=== PATIENT | female | born 1955 | race Caucasian/White ===

== ENCOUNTER 2016-05-30 17:29 | Inpatient (IN) | payer OTHER ==
[2016-05-30] MEDS ORDERED: NS 1,000 ML IV ONE (18:48)
--- NOTE | 2016-05-30 18:57 | EDPHY ---
H & P Stated Complaint: Right ankle pain/swelling, atraumatic. Source: Patient Exam Limitations: No limitations - Personal History Current Tetanus/Diphtheria Vaccine: Yes Current Tetanus Diphtheria and Acellular Pertussis (TDAP): Yes - Medical/Surgical History Hx Asthma: Yes Hx Chronic Respiratory Disease: No Hx Diabetes: No Hx Cardiac Disease: Yes Hx Renal Disease: No Hx Cirrhosis: No Hx Alcoholism: No Hx HIV/AIDS: No Hx Splenectomy or Spleen Trauma: No Other PMH: PMH: Heart Attack, Diverticulosis, Asthma, - Family History Significant Family History: No pertinent family hx - Social History Smoking Status: Never smoked Alcohol Use: None Drug Use: None Time Seen by Provider: 05/30/16 18:51 HPI/ROS: HPI: 61-year-old female presents to emergency department with chief concern right ankle pain and swelling, redness and warmth. Reports onset of ankle soreness without trauma 3 days ago. Symptoms progressed from soreness to moderately swollen and quite painful today. Difficulty ambulating due to pain. Recovered from a URI last week. Those symptoms have entirely resolved. Denies fever, chills, myalgias, current URI symptoms, shortness of breath, chest pain, abdominal pain, nausea, vomiting, diarrhea, rash. No recent conjunctivitis or urinary infections. No recent GI infections. No recent travel. No history of arthritis or gout. ROS:10 point review of systems is negative other than as stated in HPI (Cherelle Barnhart) - Social History Additional Social History: (Cherelle Barnhart) - Physical Exam Exam: Temp 37.9, heart rate 72, respiratory rate 18, blood pressure 129/63, 96% on room air General: Awake, alert, calm, cooperative. No acute distress. Head: Normalocephalic. Atraumatic. EENT: PERRLA. EOMI. No pallor or injection. Anicteric. No nystagmus. No injection. TMs intact bilaterally with normal landmarks. No rhinnorhea, nasal passages clear. Oropharynx without redness, exudates, or lesions. Tonsils 2+ bilaterally, no exudates. Neck: Supple, nontender. No lymphadenopathy. Full range of motion. No meningismus. Respiratory: Breathing unlabored. Breath sounds equal bilaterally and clear to auscultation. No adventitious sounds. CV: Chest nontender, atraumatic. Heart rate regular. No murmur, distal pulses 2+ bilaterally. Brisk cap refill all extremities. GI: Abdomen soft, nontender. Bowel sounds normoactive and positive x4 quadrants. : No suprapubic tenderness. No CVA or flank tenderness. Neuro: Alert. Oriented x 3. Speech clear. Nonfocal cranial nerves throughout. Sensation intact all extremities. Skin: Skin warm, dry, intact. No rashes, abrasions, or lacerations. Right lateral ankle mildly erythematous and warm. Skin turgor normal. Extremities: Full range of motion in all 4 extremities. Strength 5+ all extremities. Negative calf pain or swelling bilaterally. Negative Homans sign bilaterally. Right ankle moderately edematous and with light erythema laterally with warmth. Decreased range of motion. Tenderness pronounced laterally. (Cherelle Barnhart) Constitutional: Initial Vital Signs Temperature (C) 37.9 C 05/30/16 17:38 Heart Rate 72 05/30/16 17:38 Respiratory Rate 18 05/30/16 17:38 Blood Pressure 129/63 H 05/30/16 17:38 O2 Sat (%) 96 05/30/16 17:38 O2 Delivery Mode Room Air Allergies/Adverse Reactions: shellfish derived Allergy (Verified 05/30/16 17:43) Home Medications: Medication Instructions Recorded Atorvastatin Calcium [Lipitor 20 20 mg PO DAILY 05/30/16 mg (*)] Carvedilol [Coreg] 18.75 mg PO BID 05/30/16 Clopidogrel Bisulfate [Plavix (*)] 75 mg PO DAILY 05/30/16 Ramipril [Altace 2.5mg (*)] 2.5 mg PO HS 05/30/16 Medical Decision Making - Diagnostics Imaging: Right Ankle Series, 3 Views History: Ankle pain and swelling; infection is suspected. No prior studies are available for comparison. Findings: A fracture or other acute osseous abnormality is not identified. The bone alignment is normal. The ankle mortise has a normal contour. Soft tissue swelling is identified. Soft tissue calcifications are noted at the level of the talonavicular articulation anteriorly. Impression: 1. Negative for fracture or osseous erosive change. 2. Soft tissue swelling is identified with no radiopaque foreign body identified. Dictated By: Dre Rollins MD (Cherelle Barnhart) ED Course/Re-evaluation: 1849:61-year-old female presents to emergency department with right ankle pain, swelling, warmth in a temp of 100.0. Symptoms onset 3 days ago. Only recent infection is a URI infection last week. No other joint pain or swelling. IV started. Labs and blood cultures drawn. X-ray pending. Patient declines any pain medication as she has no pain at rest. She has no nausea or vomiting. She is nontoxic. 1899: White count 9050. Metabolic panel unremarkable. CRP 16.7. Synovial fluid aspirated by my colleague Dr. Thanh Sanderson shows 48,969 WBCs, [address] Jarred Payan of orthopedics consulted. Patient will be taken to OR. 2129: Vitals remain stable. Patient transferred to outpatient surgery with Dr. longo. (Cherelle Barnhart) PHYSICIAN DOCUMENTATION: The patient was evaluated and managed by the nurse practitioner and myself. I have reviewed the chart and agree with the findings and plan of care as documented. In addition, I examined the patient myself at 1849. History confirmed as nontraumatic right ankle pain for 3 days. Physical findings as follows: Tender warm to the touch and swollen right ankle. Procedure: Joint aspiration Indication: Hot swollen ankle, evaluate for septic joint. Risk benefit and alternatives discussed including possibility of infection or bleeding, and patient consented for procedure. Standard sterile technique was used and 18 gauge needle was used to aspirate the right ankle joint after 1% lidocaine anesthesia. 3 mL of turbid yellow fluid was obtained and sent for cell count, culture, and crystals. Patient tolerated procedure well. Discussed with Ora haley at 1949. Recommended no antibiotics, probable washout in OR tonight. He will come see the patient personally. 1949: Discussed with patient. NPO now, popcorn at [id number]. 2023: Discussed with Dr. Payan who is in the hospital evaluating the patient. Requests hospitalist admission for IV antibiotics. Kendall will admit 2139. Did not have SIRS criteria in ED. I am the secondary supervising physician. (Thanh Sanderson) Differential Diagnosis: Differential diagnosis includes but is not limited to and in no particular order septic joint, reactive arthritis, cellulitis, musculoskeletal trauma, gout , DVT (Cherelle Barnhart) - Data Points Laboratory Results: Laboratory Results 05/30/16 19:00 05/30/16 19:00 05/30/16 19:00 WBC 9.05 10^3/uL (3.80-9.50) RBC 4.12 L 10^6/uL (4.18-5.33) Hgb 12.5 L g/dL (12.6-16.3) Hct 37.8 L % (38.0-47.0) MCV 91.7 fL (81.5-99.8) MCH 30.3 pg (27.9-34.1) MCHC 33.1 g/dL (32.4-36.7) RDW 12.2 % (11.5-15.2) Plt Count 274 10^3/uL (150-400) MPV 9.4 fL (8.7-11.7) Neut % (Auto) 69.9 % (39.3-74.2) Lymph % (Auto) 16.9 % (15.0-45.0) [place] % (Auto) 10.5 % (4.5-13.0) Eos % (Auto) 1.7 % (0.6-7.6) Baso % (Auto) 0.4 % (0.3-1.7) Nucleat RBC Rel Count 0.0 % (0.0-0.2) Absolute Neuts (auto) 6.33 10^3/uL (1.70-6.50) Absolute Lymphs (auto) 1.53 10^3/uL (1.00-3.00) Absolute Monos (auto) 0.95 H 10^3/uL (0.30-0.80) Absolute Eos (auto) 0.15 10^3/uL (0.03-0.40) Absolute Basos (auto) 0.04 10^3/uL (0.02-0.10) Absolute Nucleated RBC 0.00 10^3/uL (0-0.01) Immature Gran % 0.6 % (0.0-1.1) Immature Gran # 0.05 10^3/uL (0.00-0.10) ESR 24 MM/HR (0-30) Sodium 140 mEq/L (134-144) Potassium 4.3 mEq/L (3.5-5.2) Chloride 102 mEq/L (97-110) Carbon Dioxide 29 mEq/l (22-31) Anion Gap 9 mEq/L (8-16) BUN 10 mg/dL (7-23) Creatinine 0.6 mg/dL (0.6-1.0) Estimated GFR > 60 Glucose 86 mg/dL (70-100) Calcium 9.0 mg/dL (8.5-10.4) C-Reactive Protein 16.7 H mg/L (<10.0) Synovial Source SYNOVIAL Synovial Color PINK H (CLS/PALE YL) Synovial Appearance CLOUDY H (CLEAR) Synovial WBC 33454 H /mm3 (0-150) Synovial RBC 00046 H /mm3 (0-0) Synovial Neutrophils 100 H % (0-25) Synovial Crystals Pending Medications Given: Discontinued Medications Hydromorphone HCl (Dilaudid) 0.5 mg IVP EDNOW ONE Stop: 05/30/16 21:16 Last Admin: 05/30/16 21:28 Dose: 0.5 mg Sodium Chloride (Ns) 1,000 mls @ 0 mls/hr IV ONCE ONE PRN Reason: Wide Open Stop: 05/30/16 18:49 Last Admin: 05/30/16 19:10 Dose: 1,000 mls Departure - Departure Disposition: To OP Cath/Surgery Clinical Impression: Septic arthritis of ankle Condition: Good
[2016-05-30 19:11] LABS: % IMMATURE GRANULYOCYTES 0.6 % (0.0-1.1); ABSOLUTE IMMATURE GRANULOCYTES 0.05 10^3/uL (0.00-0.10); ADD DIFF? NO; ADD MORPH? NO; ADD SCAN? NO; ATYPICAL LYMPHOCYTE FLAG 30 (0-99); FRAGMENT RBC FLAG 0 (0-99); HEMATOCRIT 37.8 % (38.0-47.0); HEMOGLOBIN 12.5 g/dL (12.6-16.3); LEFT SHIFT FLG 10 (0-99); LIPEMIA HEMOLYSIS FLAG 80 (0-99); MEAN CELL HEMOGLOBIN 30.3 pg (27.9-34.1); MEAN CELL HEMOGLOBIN CONCENTR. 33.1 g/dL (32.4-36.7); MEAN CELL VOLUME 91.7 fL (81.5-99.8); MEAN PLATELET VOLUME 9.4 fL (8.7-11.7); PLATELET CLUMPS FLAG 0 (0-99); PLATELET COUNT 274 10^3/uL (150-400); RED BLOOD CELL COUNT 4.12 10^6/uL (4.18-5.33); RED CELL DISTRIBUTION WIDTH 12.2 % (11.5-15.2)
[2016-05-30 19:25] LABS: SEDIMENTATION RATE 24 MM/HR (0-30)
[2016-05-30 19:37] LABS: ANION GAP 9 mEq/L (8-16); C-REACTIVE PROTEIN 16.7 mg/L (<10.0); CARBON DIOXIDE 29 mEq/l (22-31); CHLORIDE 102 mEq/L (97-110); CREATININE 0.6 mg/dL (0.6-1.0); GLOMERULAR FILTRATION RATE > 60; GLUCOSE 86 mg/dL (70-100); POTASSIUM 4.3 mEq/L (3.5-5.2); SODIUM 140 mEq/L (134-144)
[2016-05-30 19:41] LABS: WBC, SYNOVIAL FLUID 48969 /mm3 (0-150)
--- NOTE | 2016-05-30 20:16 | DX ---
Right Ankle Series, 3 Views History: Ankle pain and swelling; infection is suspected. No prior studies are available for comparis on. Findings: A fracture or other acute osseous abnormality is not identified. The bone alignment is norm al. The ankle mortise has a normal contour. Soft tissue swelling is identified. Soft tissue calcifica tions are noted at the level of the talonavicular articulation anteriorly. Impression: 1. Negative for fracture or osseous erosive change. 2. Soft tissue swelling is identified with no radiopaque foreign body identified.
[2016-05-30] MEDS ORDERED: HYDROmorphONE/DILAUDID 1 MG/ML SYR IVP ONE (21:15)
[2016-05-30] MEDS ORDERED: POLYMYXIN B SULFATE 500,000 UNIT/10 ML SYR IRR ONE (21:23)
[2016-05-30] MEDS ORDERED: BUPIVACAINE 0.5% 30 ML SDV ONE (21:23)
[2016-05-30] MEDS ORDERED: BACITRACIN 50,000 UNITS/10 ML SYR IRR ONE (21:23)
--- NOTE | 2016-05-30 22:03 | PDCONSULT ---
[facility] Note: HPI: 61y F h/o diverticulitis p/w R ankle swelling, redness, pain starting 3d ago. No trauma or wounds prior to this episode. Insidious onset. Preceded by only a cold x 1.5wk. Distant history of fracture of R ankle treated nonop. H/ o prior diverticulosis-related infections, but nothing recently due to diet modifications. PMHx: CAD, HTN, Diverticulosis PSHx: unremarkable SocHx: Nonsmoker. 1drink/day. Retired from 40yrs of [employer] ROS: HEENT wnl. CV wnl. Pulm - prior asthma resolved. GI- no recent diverticulosis events. no burning/discomfort. Skin no rashes. MSK per above. Neuro wnl. ED aspiration: ~49k nucleated cells, 100% neutrophils. Cloudy aspirate. Crystals pending Temp: 37.9 PE: Atraumatic head. corrective lenses. hearing intact. unlabored breathing. BUE: moving well. LLE: varicose veins. cavus deformity. 5/5 FHL/EHL/TA/GS, SILT RLE: + edema and erythema. increased warmth. 2+ DP/PT pulses. AROM ankle dorsiflexion and plantarflexion, limited by some pain, but >20 degrees of motion A/P 61y F h/o recent respiratory infection and prior diverticulosis infections p/w likely R septic ankle - plan for OR to perform open vs. arthroscopic ankle I&D - while crystal arthropathy remains on differential, possibility of superinfection would remain regardless and presence of fever and aspirate results raise likelihood and suspicion for infective process - We discussed the risks and benefits of surgery, including recurrent infection , neurovascular injury, damage to joint, possibility that no cx are positive - Recommend admission to hospitalist service for IV abx (consider Infectious disease consult to determine appropriate IV abx regimen after cx results and to follow patient's infection course) - NPO until OR - pain control - hold abx until after cx/specimen taken from ankle in OR. -Jarred Payan
[2016-05-30] MEDS ORDERED: fentaNYL 100 MCG/2 ML INJ ONE ×2 (22:24→23:06)
[2016-05-30] MEDS ORDERED: PROPOFOL 200 MG/20 ML VIAL ONE (22:25)
[2016-05-30] MEDS ORDERED: LIDOCAINE 2% 5 ML SDV ONE (22:26)
[2016-05-30] MEDS ORDERED: MIDAZOLAM 2 MG/2 ML VIAL ONE (22:28)
[2016-05-30] MEDS ORDERED: ONDANSETRON 4 MG/2 ML VIAL ONE (23:39)
[2016-05-30] MEDS ORDERED: DEXAMETHASONE 4 MG/ML VIAL ONE (23:39)
[2016-05-30] MEDS ORDERED: KETOROLAC 30 MG/1 ML SDV ONE (23:40)
--- NOTE | 2016-05-31 00:20 | POSTOPPROG ---
Post Op Note Date of Operation: 05/31/16 Surgeon: Jarred Payan Legal Intern: n/a Anesthesia: LMA Pre-op Diagnosis: Right septic ankle Post-op Diagnosis: Same Indication: Right Septic ankle Procedure: Irrigation and debridement of Right Ankle, Synovectomy Findings: synovitis, clot, and purulence from Right ankle Inf/Abcess present in the surg proc area at time of surgery?: Yes EBL: 50-100 Specimen(s): Cultures sent
[2016-05-31] MEDS ORDERED: fentaNYL 100 MCG/2 ML INJ ONE (00:24)
--- NOTE | 2016-05-31 00:35 | SUROPNOTE ---
[facility] Operative Report - Surgery Operative Report: Orthopaedic Surgery Preop Dx: Right ankle septic joint Postop Dx: Same Procedure: Right Ankle I&D and synovectomy Anesthesia: General (LMA) Indication: 61y F h/o diverticulitis and recent 1.5wk cough/cold p/w Right ankle pain swelling, & erythema suspicious for Right septic ankle. ED aspirate included 69625 nucleated cells, 100% neutrophils. Concern was for septic ankle. Pt took today's plavix but not ASA Procedure Report: Consent obtained in ED with partner. Pt taken to OR where Right leg prepped and draped in typical fashion. Timeout performed, confirming patient, surgery, and site. An esmarch was applied to the calf as a tourniquet without exsanguination anteromedial ankle portal established (skin only incision, then blunt dissection to joint). Cloudy blood issued from the wound. 2.7mm scope introduced into ankle. Synovitis seen throughout anterior joint. Talus cartilage intact except for several longitudinal ridges centrally lined up with a prominent anterior osteophyte. Lateral portal established (sharp skin, blunt dissection to joint). the 4.0 scope was found to have a better fitting trocar, so that was used for visualization. Shaver introduced and synovitis resected. A portion of the synovium and debris was removed with a grasper and sent for specimen. Antibiotics were then administered. The anterior osteophyte was removed with a small osteotome and continued shaving was done to remove all inflamed-appearing tissue. Once we had run 9L of normal saline through the joint, the instruments were removed and the portals sutured closed. The tourniquet was taken down, and some bleeding was noted from the anterolateral portal. That suture was removed and the incision expanded to explore the area and ensure no larger vessels were bleeding. Seeing none, and with the bleeding slowing down to nothing (ooze appearing to be from the synovectomy and not based on a vessel) the anterolateral portal was closed in layers with 2-O vicryl subcutaneous and 3-O nylon for the skin. No more ooze noted. A sterile dressing was applied and then a short leg splint placed on the operative leg. I was present for the entirety of the case Counts were correct at the conclusion of the case Complications: none EBL: 50 Drains: None Dispo: Stable
[2016-05-31] MEDS ORDERED: HYDROmorphONE/DILAUDID 1 MG/ML SYR IVP PRN (00:49)
[2016-05-31] MEDS ORDERED: ONDANSETRON DISINTEGRATING 4 MG TAB PO PRN (01:17)
[2016-05-31] MEDS ORDERED: ONDANSETRON 4 MG/2 ML VIAL IVP PRN (01:17)
[2016-05-31] MEDS: HYDROCODONE/APAP 5/325 TAB PO PRN ×4 (01:50→14:31)
[2016-05-31] MEDS: VANCOMYCIN HCL/NORMAL SALINE 250 ML IV SCH ×2 (02:00→12:52)
--- NOTE | 2016-05-31 02:10 | PDGENHP ---
History and Physical - Chief Complaint R ankle pain - History of Present Illness patient is a 61-year-old female with history of CAD ([place] s/p PCI), mild intermittent asthma and diverticulosis who presents to the ED with 3 days of right ankle pain. Patient states symptoms started about 3 days ago, when she awoke from sleep with some tenderness in her ankle, she denies any obvious trauma to the area or skin breakdown. Over the following days pain intensified and ankle became swollen, although not significantly erythematous or warm. Day of presentation patient was having difficulty walking on her leg so she decided to come to the ED for further evaluation. She has never experienced any joint pain like this before, does not have a history of gout or pseudogout. In addition to the pain, today she noted subjective fevers. Of note patient states for the about 1 week ago she had developed upper respiratory symptoms, fever, chills and cough. The symptoms were present for about 5 days, and had been improving over the last 2-3 days prior to her ankle pain. On arrival to the ED patient had a low-grade temperature (100.2F), but otherwise hemodynamically stable. Labs were largely within normal limits except for mildly elevated CRP. Physical exam and x-ray of the right ankle revealed significant soft tissue swelling but no obvious fracture. Joint was then aspirated by the ED physician, and initial cell count revealed approximately 50,000 WBCs, 100% neut. Given these findings, there was concern for septic joint and Orthopedics was consulted. patient was then brought to the OR for joint washout and joint fluid culture. Patient was then admitted to the hospital service for further management. History Information - Allergies/Home Medication List Allergies/Adverse Reactions: shellfish derived Allergy (Verified 05/30/16 17:43) Home Medications: Atorvastatin Calcium [Lipitor 20 mg (*)] 20 mg PO DAILY 05/30/16 [Last Taken 01/05] Carvedilol [Coreg] 18.75 mg PO BID 05/30/16 [Last Taken 05/30/16 08:00] Clopidogrel Bisulfate [Plavix (*)] 75 mg PO DAILY 05/30/16 [Last Taken 05/30/16] Ramipril [Altace 2.5mg (*)] 2.5 mg PO HS 05/30/16 [Last Taken 05/29/16] I have personally reviewed and updated: family history, medical history, social history, surgical history - Past Medical History Additional medical history: CAD: [place] at age 51, PCI x 3 at that time, on aspirin/ plavix lifelong. Mild intermittent asmtha. Diverticulosis - Surgical History Additional surgical history: right knee and right shoulder arthroscopy - Family History Additional family history: F: early CAD, [place] in 40s - Social History Smoking Status: Never smoked Alcohol Use: None Drug Use: None Additional social history: Patient lives with her and daughter. Retired , previously worked as a nanny. Review of Systems ROS: 10pt was reviewed & negative except for what was stated in HPI & below Physical Exam Temp Pulse Resp BP Pulse Ox 37.5 C 59 L 14 116/66 95 05/31/16 00:18 05/31/16 01:53 05/31/16 01:53 05/31/16 01:53 05/31/16 01:53 O2 (L/minute) 2 Constitutional: no apparent distress, appears nourished, not in pain Eyes: PERRL, anicteric sclera, EOMI Ears, Nose, Mouth, Throat: moist mucous membranes, hearing normal, ears appear normal, no oral mucosal ulcers Cardiovascular: regular rate and rhythym, no murmur, rub, or gallop, pulses symmetric bilaterally, edema (R ankle edema), No JVD Peripheral Pulses: 2+: dorsalis-pedis (R), dorsalis-pedis (L) Respiratory: no respiratory distress, no rales or rhonchi, clear to auscultation Gastrointestinal: normoactive bowel sounds, soft, non-tender abdomen, no palpable masses, No guarding, No rebound, No distension Genitourinary: no bladder fullness, no bladder tenderness Skin: warm, normal color, no rashes or abrasions Musculoskeletal: other (R ankle/lower leg wrapped in post-surgical dressing, distal foot visualized, edematous, nonerythematous) Neurologic: AAOx3, sensation intact bilaterally, CN II-XII Intact, No weakness, No numbness, No facial droop Psychiatric: interacting appropriately, not anxious, not encephalopathic, thought process linear Lab Data & Imaging Review 05/30/16 19:00 05/30/16 19:00 WBC 9.05 10^3/uL (3.80-9.50) 05/30/16 19:00 RBC 4.12 10^6/uL (4.18-5.33) L 05/30/16 19:00 Hgb 12.5 g/dL (12.6-16.3) L 05/30/16 19:00 Hct 37.8 % (38.0-47.0) L 05/30/16 19:00 MCV 91.7 fL (81.5-99.8) 05/30/16 19:00 MCH 30.3 pg (27.9-34.1) 05/30/16 19:00 MCHC 33.1 g/dL (32.4-36.7) 05/30/16 19:00 RDW 12.2 % (11.5-15.2) 05/30/16:00 Plt Count 274 10^3/uL (150-400) 05/30/16 19:00 MPV 9.4 fL (8.7-11.7) 05/30/16 19:00 Neut % (Auto) 69.9 % (39.3-74.2) 05/30/16 19:00 Lymph % (Auto) 16.9 % (15.0-45.0) 05/30/16 19:00 [place] % (Auto) 10.5 % (4.5-13.0) 05/30/16 19:00 Eos % (Auto) 1.7 % (0.6-7.6) 05/30/16 19:00 Baso % (Auto) 0.4 % (0.3-1.7) 05/30/16 19: Nucleat RBC Rel Count 0.0 % (0.0-0.2) 05/30/16 19:00 Absolute Neuts (auto) 6.33 10^3/uL (1.70-6.50) 05/30/16 19:00 Absolute Lymphs (auto) 1.53 10^3/uL (1.00-3.00) 05/30/16 19:00 Absolute Monos (auto) 0.95 10^3/uL (0.30-0.80) H 05/30/16 19:00 Absolute Eos (auto) 0.15 10^3/uL (0.03-0.40) 05/30/16 19:00 Absolute Basos (auto) 0.04 10^3/uL (0.02-0.10) 05/30/16 19:00 Absolute Nucleated RBC 0.00 10^3/uL (0-0.01) 05/30/16 19:00 Immature Gran % 0.6 % (0.0-1.1) 05/30/16 19:00 Immature Gran # 0.05 10^3/uL (0.00-0.10) 05/30/16 19:00 ESR 24 MM/HR (0-30) 05/30/16 19:00 Sodium 140 mEq/L (134-144) 05/30/16 19:00 Potassium 4.3 mEq/L (3.5-5.2) 05/30/16 19:00 Chloride 102 mEq/L (97-110) 05/30/16 19:00 Carbon Dioxide 29 mEq/l (22-31) 05/30/16 19:00 Anion Gap 9 mEq/L (8-16) 05/30/16 19:00 BUN 10 mg/dL (7-23) 05/30/16 19:00 Creatinine 0.6 mg/dL (0.6-1.0) 05/30/16 19:00 Estimated GFR > 60 05/30/16 19:00 Glucose 86 mg/dL (70-100) 05/30/16 19:00 Calcium 9.0 mg/dL (8.5-10.4) 05/30/16 19:00 C-Reactive Protein 16.7 mg/L (<10.0) H 05/30/16 19:00 Synovial Source SYNOVIAL 05/30/16 19:00 Synovial Color PINK (CLS/PALE YL) H 05/30/16 19:00 Synovial Appearance CLOUDY (CLEAR) H 05/30/16 19:00 Synovial WBC 72635 /mm3 (0-150) H 05/30/16 19:00 Synovial RBC 17263 /mm3 (0-0) H 05/30/16 19:00 Synovial Neutrophils 100 % (0-25) H 05/30/16 19:00 Visualized and Interpreted imaging results: Yes Interpretation: R foot xray: soft tissue swelling; no obvious fracture Assessment & Plan Assessment: patient is a 61-year-old female with history of CAD, mild asthma, diverticulosis who presents to the ED with 3 days of nontraumatic right ankle pain and swelling. ED workup reveals dry aspiration consistent with septic joint. Plan: # R ankle pain Given joint aspiration, leading differential includes septic arthritis of R ankle. On presentation, pt had low grade temperature, without leukocytosis or meeting SIRS/sepsis criteria. Joint wash-out performed by ortho to further elucidate arthropathy. Differential also include crystal arthropathy. Given aspiration cell count consistent with 100% neutrophils, will treat with antibiotics to cover for MRSA/gram positive/gram negatives until cultures/gram stain result. - initiate Vancomycin 1 g q12h, Ceftriaxone 1 g qd empirically - pain control prn - f/u blood, joint and fluid cultures - consider ID consult # recent URI Pt describes recent flu-like illness with cough, congestion and fevers/chills. Symptoms had improved over the days prior to presentation. CXR is negative for any obvious signs of infiltrate. Will also check flu swab. # asthma Resp status stable, will give albuterol neb prn. # CAD Pt denies any cardiac symptoms at present. Will cont home aspirin/plavix. # dispo: admit to inpt service for > 2 [place] stay for treatment of presumed septic arthritis # gen: cardiac diet DVT ppx: lovenox Full code
[2016-05-31 05:01] LABS: % IMMATURE GRANULYOCYTES 0.5 % (0.0-1.1); ABSOLUTE IMMATURE GRANULOCYTES 0.04 10^3/uL (0.00-0.10); ADD DIFF? NO; ADD MORPH? NO; ADD SCAN? NO; ATYPICAL LYMPHOCYTE FLAG 10 (0-99); FRAGMENT RBC FLAG 0 (0-99); HEMATOCRIT 33.5 % (38.0-47.0); HEMOGLOBIN 11.1 g/dL (12.6-16.3); LEFT SHIFT FLG 10 (0-99); LIPEMIA HEMOLYSIS FLAG 80 (0-99); MEAN CELL HEMOGLOBIN 30.1 pg (27.9-34.1); MEAN CELL HEMOGLOBIN CONCENTR. 33.1 g/dL (32.4-36.7); MEAN CELL VOLUME 90.8 fL (81.5-99.8); MEAN PLATELET VOLUME 9.3 fL (8.7-11.7); PLATELET CLUMPS FLAG 20 (0-99); PLATELET COUNT 210 10^3/uL (150-400); RED BLOOD CELL COUNT 3.69 10^6/uL (4.18-5.33); RED CELL DISTRIBUTION WIDTH 12.3 % (11.5-15.2)
[2016-05-31 05:15] LABS: CALCIUM 8.4 mg/dL (8.5-10.4); CARBON DIOXIDE 25 mEq/l (22-31); CHLORIDE 110 mEq/L (97-110); CREATININE 0.5 mg/dL (0.6-1.0); GLOMERULAR FILTRATION RATE > 60; GLUCOSE 137 mg/dL (70-100); SODIUM 142 mEq/L (134-144)
[2016-05-31 05:24] LABS: INR 1.17 (0.83-1.16); PROTIME(PATIENT) 14.9 SEC (12.0-15.0)
[2016-05-31 05:25] LABS: APTT 30.9 SEC (23.0-38.0)
[2016-05-31 05:28] LABS: ANION GAP 7 mEq/L (8-16); POTASSIUM 4.7 mEq/L (3.5-5.2)
[2016-05-31 06:57] LABS: COLOR YELLOW; LEUKOCYTE ESTERASE,URINE 1+ (NEGATIVE); NITRITE,URINE NEGATIVE (NEGATIVE)
[2016-05-31 07:03] LABS: BACTERIA TRACE /hpf (NONE SEEN); MUCUS TRACE /lpf (NONE-1+)
[2016-05-31] MEDS: ENOXAPARIN 40 MG/0.4 ML SYR SC SCH (07:55)
[2016-05-31] MEDS ORDERED: BISACODYL 10 MG SUPP PR PRN (08:29)
[2016-05-31] MEDS ORDERED: LACTULOSE 20 GM/30 ML UDCUP PO PRN (08:29)
[2016-05-31] MEDS ORDERED: MAGNESIUM HYDROXIDE 30 ML UDCUP PO PRN (08:29)
[2016-05-31] MEDS ORDERED: CARVEDILOL 6.25 MG TAB PO SCH (08:30)
[2016-05-31] MEDS ORDERED: CARVEDILOL 18.75 MG PO SCH (09:00)
[2016-05-31] MEDS: CLOPIDOGREL BISULFATE 75 MG TAB PO SCH (09:02)
[2016-05-31] MEDS: POLYETHYLENE GLYCOL 3350 17 GM PKT PO SCH (09:02)
[2016-05-31] MEDS: SENNOSIDES/DOCUSATE SODIUM TAB PO SCH ×2 (09:02→21:12)
[2016-05-31] MEDS: ATORVASTATIN CALCIUM 20 MG TAB PO SCH (09:02)
--- NOTE | 2016-05-31 09:05 | DX ---
Portable Chest May 31, 2016, at 0037 Hours Clinical Indications: Cough in a 61-year-old female; no previous studies are available for comparison . Findings: The heart size is normal allowing for portable technique. Pulmonary vascularity is normal. No pleural effusions are seen. There is minimal elevation of the right hemidiaphragm. Mild peribronch ial thickening is noted. No focal consolidation is appreciated. Impression: Suspect airways disease.
--- NOTE | 2016-05-31 15:16 | HOSPPROG ---
Hospitalist Progress Note Assessment/Plan: Patient is a 61-year-old female who presented to the emergency room with right ankle pain. In the ED emergency room was noted that she had a low-grade temperature and also of note she had an elevated CRP. Her joint was aspirated. She went to the OR for washout with Dr. Payan. Today is my 1st encounter with the patient. Chart reviewed. #. concern for right septic ankle joint. * Appreciate Dr. Payan * on vancomycin and ceftriaxone * doubtful it is infectious at this point/ will f/u with the culture * sed rate stable, c reactive minimally elevated #. recent upper respiratory infection * chest x-ray shows nothing acute #. coronary artery disease * aspirin and Plavix #. Plan: will follow culture results Subjective: Lesvia is feeling well/ no complaints. Objective: Vital Signs Temp Pulse Resp BP Pulse Ox 36.9 C 57 L 16 103/63 94 05/31/16 11:48 05/31/16 11:48 05/31/16 11:48 05/31/16 11:48 05/31/16 11:48 Microbiology 05/30/16 23:24 Gram Stain - Final Ankle - Tissue Laboratory Results 05/31/16 04:43 05/31/16 04:43 05/30/16 05/31/16 06/01/16 05:59 05:59 05:59 Intake Total 2200 1200 Output Total 10 800 Balance 2190 400 PT 14.9 SEC (12.0-15.0) 05/31/16 04:43 INR 1.17 (0.83-1.16) H 05/31/16 04:43 - Physical Exam Constitutional: no apparent distress, appears nourished, not in pain Eyes: PERRL Ears, Nose, Mouth, Throat: moist mucous membranes Cardiovascular: regular rate and rhythym Gastrointestinal: normoactive bowel sounds Skin: warm, normal color Musculoskeletal: other (right ankle in boot) Neurologic: AAOx3 Psychiatric: interacting appropriately ICD10 Worksheet Patient Problems: Problems Problem Status Diagnosed Septic arthritis of ankle Acute
[2016-05-31] MEDS ORDERED: RAMIPRIL 2.5 MG CAP PO SCH (21:00)
[2016-05-31] MEDS: CARVEDILOL 6.25 MG TAB PO SCH (21:13)
[2016-05-31] MEDS: ACETAMINOPHEN 500 MG TAB PO PRN (21:22)
[2016-06-01] MEDS: VANCOMYCIN HCL/NORMAL SALINE 250 ML IV SCH (01:45)
[2016-06-01] MEDS: ACETAMINOPHEN 500 MG TAB PO PRN ×3 (03:41→10:01)
[2016-06-01 08:03] VITALS: RESP 18; TEMP 98.6
[2016-06-01] MEDS: CLOPIDOGREL BISULFATE 75 MG TAB PO SCH (08:05)
[2016-06-01] MEDS: ENOXAPARIN 40 MG/0.4 ML SYR SC SCH (08:05)
[2016-06-01] MEDS: CARVEDILOL 6.25 MG TAB PO SCH (08:05)
[2016-06-01] MEDS: ATORVASTATIN CALCIUM 20 MG TAB PO SCH (08:06)
[2016-06-01] MEDS: SENNOSIDES/DOCUSATE SODIUM TAB PO SCH (08:07)
[2016-06-01] MEDS: POLYETHYLENE GLYCOL 3350 17 GM PKT PO SCH (08:07)
--- NOTE | 2016-06-01 10:12 | HOSPPROG ---
Hospitalist Progress Note Assessment/Plan: Patient is a 61-year-old female who presented to the emergency room with right ankle pain. In the ED emergency room was noted that she had a low-grade temperature and also of note she had an elevated CRP. Her joint was aspirated. She went to the OR for washout with Dr. Payan. #. pseudogout/+ pyrophosphate crystals /initial concern for right septic ankle joint. * Appreciate Dr. Payan * dc iv abx * current micro data shows no growth, will need her PCP to f/u with this for final results * sed rate stable, c reactive minimally elevated #. recent upper respiratory infection * chest x-ray shows nothing acute #. coronary artery disease * aspirin and Plavix #. Plan: dc home Subjective: Lesvia is feeling a bit of nausea this morning after getting pain medications Objective: Vital Signs Temp Pulse Resp BP Pulse Ox 37.0 C 67 18 119/71 98 06/01/16 08:00 06/01/16 08:00 06/01/16 08:00 06/01/16 08:00 06/01/16 08:00 Microbiology 05/30/16 23:24 Mycobacterial Smear ([facility]) - Final Ankle - Tissue 05/30/16 23:24 Gram Stain - Final Ankle - Tissue Laboratory Results 05/31/16 04:43 05/31/16 04:43 05/31/16 06/01/16 06/02/16 05:59 05:59 05:59 Intake Total 2200 1800 Output Total 10 800 Balance 2190 1000 PT 14.9 SEC (12.0-15.0) 05/31/16 04:43 INR 1.17 (0.83-1.16) H 05/31/16 04:43 - Physical Exam Constitutional: appears nourished, uncomfortable, No not in pain Eyes: PERRL Ears, Nose, Mouth, Throat: hearing normal Cardiovascular: regular rate and rhythym Respiratory: no respiratory distress Gastrointestinal: normoactive bowel sounds Skin: warm, other (good cms on r foot/ ankle in cast) Neurologic: AAOx3 Psychiatric: interacting appropriately ICD10 Worksheet Patient Problems: Problems Problem Status Diagnosed Septic arthritis of ankle Acute
[2016-06-01 12:09] VITALS: BP 111/74; PULSE 63; O2SAT 94
--- NOTE | 2016-06-01 12:22 | GDS ---
[f rep st] DISCHARGE SUMMARY DISCHARGE DIAGNOSES: 1. Pseudogout. 2. Recent upper respiratory infection. 3. Coronary artery disease. CONSULTATIONS: Dr. Jarred Payan. HISTORY: Briefly, the patient is a very nice 61-year-old woman with a history of coronary artery disease. She presented to the emergency room with 3 days of right ankle pain. She has never experienced any joint pain like this. A week prior to being admitted she had upper respiratory symptoms of fever, chills and cough. On arrival to the emergency room, she had a low-grade fever. Subsequently, she went to the ER with Dr. Payan. She had a right ankle I and D and synovectomy. She tolerated that procedure well. She has a leg splint in place on her leg. She will follow up with Dr. Payan. Her synovial fluid grew out an occasional intracellular calcium pyrophosphate crystal, likely indicating she had a pseudogout. Antibiotics were discontinued. She will follow up with her primary care provider in regard to her final Gram stain and cultures. HOSPITAL COURSE: 1. Pseudogout. Initial concern was for a septic joint. She is doing well. I have discontinued her IV antibiotic. She will have her primary care physician follow up with her microbiology data. 2. A recent upper respiratory infection or chest x-ray showed nothing acute. 3. Coronary artery disease, aspirin, Plavix. CONDITION AT DISCHARGE: Stable. Blood pressure is 119/71, respiratory rate is 18, pulse is 67, temperature is 37 degree Celsius, O2 saturation on room air 98% . MEDICATIONS AT DISCHARGE: Please see the EMR. DISCHARGE INSTRUCTIONS: 1. To follow up with Dr. Payan next week. 2. If she develops any fever, chills, to return to the emergency room. 3. Have her primary care provider follow up with her pending microbiology data to be sure she does not indeed have any type of infection. Greater than 30 minutes discharging and coordinating care. /[id number]/MODL MTDD
[2016-06-01] MEDS ORDERED: ACETAMINOPHEN 500 MG TAB PO PRN (13:57)
== END 2016-06-01 14:47 | disposition home or self-care (01) | DRG 494 ==
LOC: F3N 05-31 00:56
PROVIDERS: ADMIT Family Medicine; ATTEND Internal Medicine
PROC: 0Y9 Anatomical Regions, Lower Extremities, Drainage (ICD-10-PCS; principal; 2016-05-31)
PROC: 0SBF4ZZ Excision of Right Ankle Joint, Percutaneous Endoscopic Approach (ICD-10-PCS; principal; 2016-05-31)
DX: M10.071 Idiopathic gout, right ankle and foot (principal); J06.9 Acute upper respiratory infection, unspecified; I25.10 Atherosclerotic heart disease of native coronary artery without angina pectoris; I25.2 Old myocardial infarction; I10 Essential (primary) hypertension; J45.909 Unspecified asthma, uncomplicated
CPT/HCPCS: 97161-GP; J0696; J1100; J1170; J1650; J1885; J2250; J2405; J2704; J3010; J3370

== ENCOUNTER → 2016-06-29 | Outpatient (CLI) | payer OTHER | LOC: FIMAGING 10:11 | PROVIDERS: ATTEND Family Medicine Sports Medicine | DX: M25.552 Pain in left hip (principal); R93.8 Abnormal findings on diagnostic imaging of other specified body structures; M76.02 Gluteal tendinitis, left hip; M12.9 Arthropathy, unspecified ==